=== PATIENT | male | born 1985 | race Two or more races ===

== ENCOUNTER 2019-04-18 19:51 | Emergency (ER) | payer BC ==
[2019-04-18 20:10] VITALS: BP 144/101; PULSE 88
--- NOTE | 2019-04-18 20:51 | CR ---
Chest: PA view of the chest was obtained. Comparison: No prior chest imaging. Heart size and mediastinum are normal. Lungs are clear. Bony structures are unremarkable for the patient's age. Impression: 1. Nothing acute is seen on PA chest x-ray. Diagnostic code #1 Study was dictated in [place] Standard Time
--- NOTE | 2019-04-18 21:23 | EDM.PDOC ---
ED HPI GENERAL MEDICAL PROBLEM - General Chief Complaint: Respiratory Problem Stated Complaint: COUGHING Time Seen by Provider: 04/18/19 20:58 Source of Information: Reports: Patient History Limitations: Reports: No Limitations - History of Present Illness INITIAL COMMENTS - FREE TEXT/NARRATIVE: Mr. Lopez is a very pleasant 34-year-old man with no chronic medical problems and no past surgical history, who states that he developed rhinorrhea and sneezing on 03/31/2019, which persisted through 04/07/2019. He developed generalized body aches on 04/08/2019. He was in [place] from 04/12/2019 through 04/16/2019. He developed a sore throat on , 04/13/2019, after drinking too much tequila. This resolved by 2019. He developed a subjective fever and a dry cough on 04/16/2019, around the time that he was returning from [place]. The patient states that his symptoms have persisted despite taking NyQuil, Tylenol, and "you name it, right?" The patient denies recent dyspnea, chest pain, palpitations, nausea, vomiting, constipation, diarrhea, abdominal pain, urinary symptoms, recent weight gain or weight loss, recent bloody bowel movements or black bowel movements, headaches, or rashes. Here in the ED, the patient is found to be hemodynamically stable, afebrile, saturating 98% on room air. The patient does not have a PCP. He did not receive an influenza vaccine this season, but agreed to receive one here today. Throat Pain Score (Numeric/FACES): 6 - Related Data Allergies Allergy/AdvReac Type Severity Reaction Status Date / Time No Known Allergies Allergy Verified 04/18/19 20:10 Home Meds: Home Meds Clindamycin HCl 300 mg PO TID #15 capsule 02/03/15 [Rx] Hydrocodone/Acetaminophen [Hydrocodon-Acetaminophen 5-325] 1 each PO Q6H PRN # 10 tablet 02/03/15 [Rx] Past Medical History - Past Health History Medical/Surgical History: Denies Medical/Surgical History Social & Family History - Tobacco Use Smoking Status *Q: Current Every Day Smoker Years of Tobacco use: 16 Packs/Tins Daily: 1 - Alcohol Use Alcohol Use History: Yes Alcohol Use Frequency: Socially (occasionally to excess) - Recreational Drug Use Recreational Drug Use: No - Living Situation & Occupation Living situation: Reports: , with Spouse, with Family (2 kids) Occupation: Employed ([employer]) ED ROS GENERAL - Review of Systems Review Of Systems: Comprehensive ROS is negative, except as noted in HPI. ED EXAM, GENERAL - Physical Exam Exam: See Below Exam Limited By: No Limitations General Appearance: Alert, WD/WN, No Apparent Distress Eye Exam: Bilateral Eye: EOMI, Normal Inspection Ears: Normal External Exam, Normal Canal, Hearing Grossly Normal, Other (Left TM erythematous without purulence, consistent with serous otitis media. Right TM normal.) Nose: No Blood, Clear Rhinorrhea, Other (Bilateral nasal mucosal edema) Throat/Mouth: Normal Inspection, Normal Lips, Normal Teeth, Normal Gums, Normal Oropharynx, Normal Voice, No Airway Compromise Head: Atraumatic, Normocephalic Neck: Normal Inspection, Supple, Non-Tender, Full Range of Motion. No: Lymphadenopathy (L), Lymphadenopathy (R) Respiratory/Chest: No Respiratory Distress, Lungs Clear, Normal Breath Sounds, No Accessory Muscle Use. No: Decreased Breath Sounds, Crackles, Rhonchi, Wheezing, Stridor, Prolonged Expiration Cardiovascular: Normal Peripheral Pulses, Regular Rate, Rhythm, No Edema, No Gallop, No JVD, No Murmur, No Rub Peripheral Pulses: 4+: Radial (L), Radial (R) GI/Abdominal: Normal Bowel Sounds, Soft, Non-Tender, No Organomegaly, No Distention, No Abnormal Bruit, No Mass (Male) Exam: Deferred Rectal (Males) Exam: Deferred Back Exam: Normal Inspection, Full Range of Motion, NT Extremities: Normal Inspection, Normal Range of Motion, No Pedal Edema, Normal Capillary Refill Neurological: Alert, Oriented, Normal Cognition, No Motor/Sensory Deficits Psychiatric: Normal Affect Skin Exam: Warm, Dry, Intact, Normal Color, No Rash Course - Vital Signs Last Recorded V/S: Last Vital Signs Temp 38.0 C 04/18/19 20:07 Pulse 88 04/18/19 20:07 Resp 17 04/18/19 20:07 BP 144/101 H 04/18/19 20:07 Pulse Ox 98 04/18/19 20:07 - Orders/Labs/Meds Orders: Active Orders 24 hr Category Date Time Status Influenza Vaccine Charge [RC] .DISCHARGE Care 04/18/19 21:24 Active CULTURE STREP A CONFIRMATION [] Stat Lab 04/18/19 20:12 Results STREP SCRN A RAPID W CULT CONF [] Stat Lab 04/18/19 20:12 Results FLU Vacc [id number](6MOS+)/PF [Fluzone Quad Med 04/18/19 22:00 Once Syringe] 60 mcg IM .ONCE ONE Medication Orders Influenza Virus Vaccine (Fluzone Quad Syringe) 60 mcg IM .ONCE ONE Stop: 04/18/19 22:01 Last Admin: 04/18/19 21:34 Dose: 60 mcg Meds: Medications Generic Name Dose Route Start Last Admin Trade Name Freq PRN Reason Stop Dose Admin Influenza Virus Vaccine 60 mcg 04/18/19 22:00 04/18/19 21:34 Fluzone Quad Syringe IM 04/18/19 22:01 60 mcg .ONCE ONE Administration Discontinued Medications Generic Name Dose Route Start Last Admin Trade Name Freq PRN Reason Stop Dose Admin Influenza Virus Vaccine 1 each 04/18/19 21:23 Pharmacy To Dose - Influenza Vaccine IM 04/18/19 21:24 ONETIME ONE Influenza Virus Vaccine Confirm 04/18/19 21:29 Fluzone Quad Syringe Administered 04/18/19 21:30 Dose 60 mcg .[address] [facility] ONE - Re-Assessments/Exams Free Text/Narrative Re-Assessment/Exam: 04/18/19 21:17 The patient's rapid strep test returned negative. His influenza swab returned negative. We will chest x-ray is read by Dr. Jeronimo as: 1. Nothing acute is seen on PA chest x-ray. The patient's physical exam is unremarkable. Is likely suffering from a virus, or, possibly several different viruses over the course of the last several weeks. I explained that at this time there are no medicines we can give to treat the virus, that it will have to run its course. I advised against over- the-counter cough and cold remedies, as they have been shown to be of no benefit , however, he may take [id number] Tylenol or ibuprofen as needed for discomfort from fever. The patient will be given an influenza vaccine prior to discharge. Departure - Departure Time of Disposition: 21:24 Disposition: Home, Self-Care 01 Condition: Good Clinical Impression: Viral illness - Discharge Information *PRESCRIPTION DRUG MONITORING PROGRAM REVIEWED*: Not Applicable *COPY OF PRESCRIPTION DRUG MONITORING REPORT IN PATIENT SIMONA: Not Applicable Instructions: Viral Illness, Adult Referrals: PCP,None [Primary Care Provider] - Forms: ED Department Discharge Additional Instructions: You were seen in the emergency room for runny nose and sneezing, body aches, a fever, sore throat, and cough. Work-up in the ER included a rapid strep test, an influenza swab, and a portable chest x-ray. Your entire work-up was unremarkable. You do not have pneumonia. You do not have strep throat. As discussed, it is possible that you can have influenza even though your flu test was negative, however, at this point, it is too late to treat with anti- influenza medicine. We recommend that you not take any [id number] cough or cold remedies, as they have been shown to be of no benefit, but do have side effects, including an upset stomach. You do not need to treat low-grade fevers, however, you may take over-the- counter Tylenol or ibuprofen as needed for discomfort from fever. Make sure that you stay adequately hydrated. If any other problems, please do not hesitate to return to the ER. Sepsis Event Note - Evaluation Sepsis Screening Result: No Definite Risk - Focused Exam Vital Signs: Vital Signs Temp Pulse Resp BP Pulse Ox 04/18/19 20:07 38.0 C 88 17 144/101 H 98 Date Exam was Performed: 04/18/19 Time Exam was Performed: 21:39 - My Orders Last 24 Hours: My Active Orders 04/18/19 20:12 CULTURE STREP A CONFIRMATION [RM] Stat STREP SCRN A RAPID W CULT CONF [RM] Stat 04/18/19 21:24 Influenza Vaccine Charge [RC] .DISCHARGE 04/18/19 22:00 FLU Vacc [id number](6MOS+)/PF [Fluzone Quad Syringe] 60 mcg IM .ONCE ONE - Assessment/Plan Last 24 Hours: My Active Orders 04/18/19 20:12 CULTURE STREP A CONFIRMATION [RM] Stat STREP SCRN A RAPID W CULT CONF [RM] Stat 04/18/19 21:24 Influenza Vaccine Charge [RC] .DISCHARGE 04/18/19 22:00 FLU Vacc [id number](6MOS+)/PF [Fluzone Quad [id number] Syringe] 60 mcg IM .ONCE ONE
[2019-04-18] MEDS ORDERED: FLU Vacc QS2019-20(6MOS+)/PF 60 MCG/0.5 ML SYRINGE ONE (21:29)
[2019-04-18] MEDS ORDERED: FLU Vacc QS2019-20(6MOS+)/PF 60 MCG/0.5 ML SYRINGE IM ONE (22:00)
== END 2019-04-18 21:35 | disposition home or self-care (01) ==
LOC: JD.ED 19:51
DX: B34.9 Viral infection, unspecified (principal); F17.210 Nicotine dependence, cigarettes, uncomplicated; Z23 Encounter for immunization
CPT/HCPCS: 71045; 71045-26; 87081; 87430; 87804; 90686; 99282; 99283-25; G0008